=== PATIENT | female | born 1980 | race American Indian/Alaskan Native ===

== ENCOUNTER 2021-02-12 22:50 | Emergency (ER) | payer SELFPAY ==
[2021-02-12 22:54] VITALS: BP 149/95
== END 2021-02-13 01:08 | disposition left against medical advice (07) ==
LOC: ED 22:50
DX: R05.9 Cough, unspecified (principal); R53.1 Weakness; R06.02 Shortness of breath; Z53.21 Procedure and treatment not carried out due to patient leaving prior to being seen by health care provider